=== PATIENT | female | born 1970 | race Asian ===

== ENCOUNTER 2024-10-04 07:26 | Emergency (ER) | payer BC, SELFPAY ==
[2024-10-04 07:42] VITALS: BP 117/83; PULSE 89; RESP 18; TEMP 36.5; O2SAT 100; BMI 22.5
--- NOTE | 2024-10-04 07:45 | XR_ITS ---
Examination: AP chest single view Technique AP portable upright chest single view Exam date and time: October 04, 2024 at 0806 hours INDICATION: Chest pain today FINDINGS: Normal heart size Accentuation bronchial vascular markings. No lobar pneumonia, no pulmonary edema Moderate osteopenia IMPRESSION: Bronchitis pattern
--- NOTE | 2024-10-04 07:45 | EKG_ITS ---
[facility] Test Date: 2024-10-04 Pat Name: ISSA BELLO Department: Room: - Gender: Female [employer] Collections Clerk: : 1970 Requested By: Frank Galeana Order Number: [id number] Reading MD: Frank Galeana Measurements Intervals [place] Rate: 83 P: 70 DC: 194 QRS: 94 QRSD: 69 T: 83 QT: 349 QTc: 411 Interpretive Statements SINUS RHYTHM BORDERLINE RIGHT AXIS DEVIATION [QRS AXIS > 90] LOW QRS VOLTAGE IN PRECORDIAL LEADS [QRS DEFLECTION < 1.0 mV IN CHEST LEADS] No previous ECG available for comparison /[id number]/[email or web address]/[id number]
--- NOTE | 2024-10-04 07:47 | PD.EDRME ---
Rapid Medical Screening Exam RME Arrival date/time: 10/04/24 07:26 CC: Chest pressure resulting in working to get my breath in and out . HPI woke her up at 4 AM no prior history of similar events continues at this time. Patient has a history of hypothyroidism, diabetes, hypercholesterolemia. Is managed by [facility]. Chief Complaint: Shortness of Breath/Dyspnea Time Seen by Provider: 10/04/24 07:43 Vital signs: Vital Signs Temperature 97.7 F 10/04/24 07:42 Pulse Rate 89 10/04/24 07:42 Respiratory Rate 18 10/04/24 07:42 Blood Pressure 117/83 10/04/24 07:42 Pulse Oximetry (%) 100 10/04/24 07:42 Oxygen Delivery Method Room Air 10/04/24 07:42
[2024-10-04 08:33] LABS: Collection Type, Urine Clean Catch
[2024-10-04 08:34] LABS: Basophils # (Auto) 0.1 Thou/mm3 (0.0-0.2); Basophils % (Auto) 0 % (0-2.5); Eosinophils # (Auto) 0.2 Thou/mm3 (0.0-0.5); Eosinophils % (Auto) 2 % (0-10); Hematocrit 42.4 % (36.0-46.0); Hemoglobin 14.4 g/dL (12.0-16.0); Immature Granulocytes % (Auto) 0 % (0-0); Immature Granulocytes Auto 0.05 Thou/mm3 (0.00-0.00); Lymphocytes # (Auto) 1.6 Thou/mm3 (1.0-4.8); Lymphocytes % (Auto) 10 % (10-50); Mean Corpuscular Hemoglobin 29.8 pg (25.0-35.0); Mean Corpuscular Volume 88 fL (80-100); Monocytes # (Auto) 1.1 Thou/mm3 (0.0-0.8); Monocytes % (Auto) 7 % (0-12); Neutrophils # (Auto) 12.5 Thou/mm3 (1.8-7.7); Neutrophils % (Auto) 81 % (37-80); Nucleated Red Blood Cell % 0 /100 WBC (0); Platelet Count 210 Thou/mm3 (140-440); RDW Standard Deviation 43.8 fL (36.4-46.3); Red Blood Count 4.84 Miln/mm3 (4.00-5.20); White Blood Count 15.5 Thou/mm3 (3.6-11.0)
[2024-10-04 08:43] LABS: Amphetamine/Methamp Scrn,U Negative (Negative); Barbiturate Screen,Urine Negative (Negative); Benzodiazepines Screen,Urine Negative (Negative); Benzoylecgonine Screen, Ur Negative (Negative); Fentanyl Screen,Urine Negative (Negative); Opiate Screen,Urine Negative (Negative); THC Screen,Urine Negative (Negative)
[2024-10-04 08:44] LABS: Bilirubin,Urine Negative (Negative); Blood,Urine Negative (Negative); Clarity,Urine Clear (Clear/Hazy); Color,Urine Yellow (Lt Yel-Yel); Glucose, Urine Negative (Negative); Ketones,Urine Negative (Negative); Leukocyte Esterase,Urine Negative (Negative); Nitrite,Urine Negative (Negative); Protein,Urine 1+ (Neg - Trace); RBC,Urine 2 /hpf (0-3); Specific Gravity,Urine 1.034 (1.001-1.035); Squamous Epithelial Cell,Urine 1 /hpf (0-5); Urobilinogen,Urine Negative mg/dL (0.0-1.0); WBC,Urine 1 /hpf (0-5)
[2024-10-04 08:54] LABS: Prothrombin Time 10.5 Seconds (9.0-12.2)
[2024-10-04 09:00] LABS: Alanine Aminotransferase 27 U/L (10-49); Albumin, Serum 5.1 gm/dL (3.5-5.0); Albumin/Globulin Ratio 1.5 (1.2-2.2); Alkaline Phosphatase 98 U/L (46-116); Anion Gap 9 (7-16); Aspartate Amino Transferase 40 U/L (0-34); BUN/Creatinine Ratio 17 Ratio (12-20); Bilirubin,Total 0.6 mg/dL (0.3-1.2); Blood Urea Nitrogen 15 mg/dL (9-23); Calcium 9.7 mg/dL (8.3-10.6); Calcium (Corrected) 9.7 mg/dL (8.5-10.1); Carbon Dioxide 26.5 mMol/L (20.0-31.0); Chloride 106 mMol/L (98-107); Creatinine (Component) 0.9 mg/dL (0.6-1.3); Estimated Creatinine Clearance 57.8 mL/min (>60); Free T4 (Free Thyroxine) 1.03 ng/dL (0.89-1.76); Globulin 3.4 gm/dL (2.3-3.5); Glucose 172 mg/dL (74-106); LDH (Lactate Dehydrogenase) 312 U/L (120-246); Magnesium 1.9 mg/dL (1.6-2.6); Osmolality,Calculated 286 (275-295); Potassium 3.6 mMol/L (3.4-5.1); Sodium 141 mMol/L (136-145); Thyroid Stimulating Hormone 53.25 uIU/mL (0.55-4.78); Total Protein 8.5 gm/dL (5.7-8.2); Troponin I < 0.020 ng/mL (0.0-0.045); eGFR > 60 See Note
[2024-10-04 09:27] LABS: B-Type Natriuretic Peptide < 20 pg/mL (0-100)
[2024-10-04 12:09] VITALS: BP 122/83; PULSE 66; RESP 15; TEMP 36.5; O2SAT 100
--- NOTE | 2024-10-04 13:08 | EDNOTE_ITS ---
<Statement entered by Janine Szymanski MD - 10/04/24 17:34> As co-signing physician, I was present and available for consult prn. I concur with the plan and care as documented by the midlevel provider. ED SOB =RME/HPI General Chief Complaint: Shortness of Breath/Dyspnea Stated Complaint: SOB Time Seen by Provider: 10/04/24 07:43 Arrival date/time: 10/04/24 07:26 RME / HPI RME / HPI Narrative: 54-year-old female patient with significant history of hypothyroidism, came in for evaluation regarding shortness of breath. Patient woke up at 4 AM today and developed sudden onset of shortness of breath lasting for few minutes. Patient denies any chest pain. Denies any fever denies any diaphoresis denies any other complaints. No medication was taken prior to arrival. Related Data Previous Rx's ?Medication ?Instructions ?Recorded albuterol sulfate 90 mcg/actuation 2 inh inhalation Q8 H PRN shortness 10/04/24 aerosol inhaler of breath or wheezing #8.5 g janet Allergies Allergy/AdvReac Type Severity Reaction Status Date / Time No Known Allergies Allergy Verified 10/04/24 07:29 Review of Systems Review of Systems Narrative Review of Systems: Review of system reviewed and within normal limits except mentioned in HPI ED Exam Narrative Physical exam: VITAL SIGNS: Reviewed. GENERAL APPEARANCE: Alert and interactive, follows commands, no acute distress, HEAD AND FACE: Non-traumatic. ENT: PERRL, pink conjunctivitis, eyelid no trauma, Mucous membrane moist. NECK: Supple, nontender, no nuchal rigidity. CHEST: No tenderness, no crepitus, no paradoxical movement, no retractions. LUNGS: Clear, well ventilated, symmetric, no rales, no wheezing, no ronchi, no stridor, good breath sounds bilaterally. HEART: Regular rate, regular rhythm, no murmur, no gallops. ABDOMEN: Soft, positive bowel sounds, nondistended, no guarding, nontender, no rebound, no masses, RECTAL: Deferred. GENITAL: Deferred. NEUROLOGICAL: Gross motor function intact sensory function intact, Appropriate for age. MUSCULOSKELETAL: low back nontender, full range of motion. EXTREMITIES: Nontender, full range of motion. SKIN: Color pink, dry, no rash, no lacerations, no abrasions, no contusions. LYMPHATICS: Deferred. Course Quality Measures none Orders Category Date Time Status EKG (ED ONLY) *Do not use* NOW Care 10/04/24 07:45 Completed EKG (ED Only) Stat Exams 10/04/24 07:45 Ordered XR chest 1V Stat Exams 10/04/24 07:45 Completed B-Type Natriuretic Peptide Stat Lab 10/04/24 08:15 Completed CBC Stat Lab 10/04/24 08:15 Completed Comprehensive Metabolic Panel Stat Lab 10/04/24 08:15 Completed Drug Screen,Urine Stat Lab 10/04/24 08:15 Completed Free T4 (Free Thyroxine) Stat Lab 10/04/24 08:15 Completed LDH (Lactate Dehydrogenase) Stat Lab 10/04/24 08:15 Completed Magnesium Stat Lab 10/04/24 08:15 Completed Partial Thromboplastin Time Stat Lab 10/04/24 08:15 Completed Prothrombin Time with INR Stat Lab 10/04/24 08:15 Completed TSH [Thyroid Stimulating Hormone] Stat Lab 10/04/24 08:15 Completed Troponin I Stat Lab 10/04/24 08:15 Completed Urinalysis Stat Lab 10/04/24 08:15 Completed Vital Signs Vital signs: Vital Signs Temperature 97.7 F 10/04/24 07:42 Pulse Rate 89 10/04/24 07:42 Respiratory Rate 18 10/04/24 07:42 Blood Pressure 117/83 10/04/24 07:42 Pulse Oximetry (%) 100 10/04/24 07:42 Oxygen Delivery Method Room Air 10/04/24 07:42 Shortness of Breath / Dyspnea MDM Narrative MDM Narrative:: 54-year-old female patient with significant history of hypothyroidism, came in for evaluation regarding shortness of breath. Patient woke up at 4 AM today and developed sudden onset of shortness of breath lasting for few minutes. Patient denies any chest pain. Denies any fever denies any diaphoresis denies any other complaints. No medication was taken prior to arrival. Patient is non-smoker. Patient's workup today including troponin came back unremarkable. Except for elevated TSH. Patient told me that she is not taking her thyroid medication on a daily basis. She forgot sometimes. Chest x-ray showed bronchitis pattern, no infiltrates no pneumothorax pneumothorax noted. Prior to discharge, patient told me that there was no recurrence of shortness of breath. Patient was noted to be satting 100% on room air Patient data External records reviewed:: None Clinical information provided by:: none Social determinants that could affect healthcare access:: none Patient has the following chronic illnesses:: Hypothyroidism, diabetes mellitus How is presenting disease/condition affected by chronic disease/condition?: exacerbated by Evaluation data The following diagnostics were reviewed and interpreted by me:: lab results and radiology exam(s) Lab and/or radiology exams considered but not ordered:: None Interpretation Summary: See results in MDM Medications / Prescriptions Medications or Prescriptions considered but not ordered:: None Medication administrations:: None Consultations Consultation(s) initiated? (list below): No Diagnosis Shortness of Breath Differential Diagnosis: acute exacerbation of chronic obstructive airways disease, community acquired pneumonia and asthma with exacerbation Most likely diagnosis given after review of the tests above:: Shortness of breath Admission Indicated Admission indicated?: not indicated Explain why admission is indicated or not indicated:: None Admission Request Was there a request for admission?: No Disposition Plan Disposition Plan: Discharge Discharge Attestation Discharge Attestation: The patient was given an opportunity to ask questions and understood the discharge instructions. Discharge instructions specifically effects, indications for sooner follow up or return to the emergency department, and the expected course of current diagnosis. Patient condition: Stable Discharge Plan Plan Patient Disposition: HOME (Self Care) Disposition Comment: Stable Prescriptions/Referrals Prescriptions/Med Rec: New albuterol sulfate 90 mcg/actuation HFA aerosol inhaler 2 inh inhalation Q8H PRN (Reason: shortness of breath or wheezing) Qty: 8.5 0RF Referrals: Yonis Butler MD [Primary Care Provider] - In 1 week Problem List Clinical Impression: Shortness of breath Patient/Caregiver Discharge Instructions Discharge Activity: activity as tolerated Education Materials: ED Shortness of Breath (Dyspnea) Additional Instructions: Thank you for the opportunity for serving you today. You are stable for discharged . You are advised to: Follow-up with your PCP in 1 to 2 days Return to ED for worsening of symptoms, fever, cough, Increase oral fluids Take medication as prescribed as needed Print Language: [place] Island[place] Stand Alone Forms: Didi Award Info., Patient Portal Info Letter JOSHUA/JAISON Supervising Physician HUNG Supervising Physician: MD Nessa
[2024-10-04] MEDS: Aspirin 325 MG TABLET PO (13:49)
[2024-10-04 14:00] VITALS: BP 121/85; PULSE 78; RESP 16; TEMP 36.6; O2SAT 100
== END 2024-10-04 14:00 | disposition home or self-care (01) ==
PROVIDERS: Registered Nurse General Practice; Emergency Provider Emergency Medicine; PCP Family Medicine
DX: R06.02 Shortness of breath (principal); E03.9 Hypothyroidism, unspecified
CPT/HCPCS: 36415; 71045; 80053; 80307; 81001; 83615; 83735; 83880; 84439; 84443; 84484; 85025; 85610; 85730; 93005; 99283; A9270